=== PATIENT | female | born 1990 | race Caucasian/White ===

== ENCOUNTER 2022-10-27 10:50 | Outpatient (CLI) | payer OTHER, SELFPAY ==
--- NOTE | 2022-10-27 10:45 | CRLHL7_ITS ---
For Patients: As a result of the Century Cures Act, medical imaging exams and procedure reports are released immediately into your electronic medical record. You may view this report before your referring provider. If you have questions, please contact your health care provider. INDICATION: Left lower quadrant pain TECHNIQUE: Ultrasound pelvis transabdominal and transvaginal for better assessment or to better visualize the endometrium. Real time sonographic images with Spectral and color Doppler imaging of the ovaries were obtained. COMPARISON: None FINDINGS: Uterus: 8.8 centimeter x 3.6 centimeter x 5.5 centimeter normal echotexture of the myometrium. No masses. Endometrium: Transvaginal imaging was performed to better evaluate the endometrium. A 7 millimeter n thickness. No sign of endometrial mass or fluid. Right ovary: 2.6 centimeter x 1.4 centimeter x 1.7 centimeter no ovarian or adnexal masses. Normal arterial and venous blood flow. Left ovary: 2.6 centimeter x 1.7 centimeter x 1.8 centimeter. No ovarian or adnexal masses. Normal arterial and venous blood flow. Cul-de-sac: Small amount of free fluid. IMPRESSION: Unremarkable pelvic ultrasound. Dictated by Oscar Stovall MD @ 10/27/2022 12:00:59 PM (Electronically Signed)
== END 2022-10-27 10:51 | disposition home or self-care (01) ==
LOC: US 10:54
PROVIDERS: Visit Provider Advanced Practice Midwife
DX: R10.32 Left lower quadrant pain (principal)
CPT/HCPCS: 76830; 76856; 93976

== ENCOUNTER 2023-01-22 08:11 | Outpatient (CLI) | payer OTHER, SELFPAY ==
--- NOTE | 2023-01-22 08:15 | CRLHL7_ITS ---
For Patients: As a result of the Century Cures Act, medical imaging exams and procedure reports are released immediately into your electronic medical record. You may view this report before your referring provider. If you have questions, please contact your health care provider. INDICATION: First trimester scan, establish dates. COMPARISON: None. TECHNIQUE: Real-time melo-scale imaging of the pelvis was performed. FINDINGS: Intrauterine gestational sac is present. pole is noted with a crown-rump length of 2.6 millimeters, 5 weeks 6 days. heart rate 82 beats per minute. Right ovary demonstrates a small corpus luteal cyst. Normal left ovary. Trace pelvic free fluid. No ectopic . Yolk sac normal measuring 2.5 millimeters. IMPRESSION: Very early single living intrauterine with sonographic gestational age 5 weeks 6 days and sonographic due date 09/18/2023. heart rate 82 beats per minute. Follow-up in 2 weeks suggested. Dictated by Oscar Santoyo MD @ 01/22/2023 10:42:57 AM (Electronically Signed)
== END 2023-01-22 08:12 | disposition home or self-care (01) ==
LOC: US 08:12
PROVIDERS: Visit Provider Registered Nurse
DX: Z34.91 Encounter for supervision of normal pregnancy, unspecified, first trimester (principal); Z3A.01 Less than 8 weeks gestation of pregnancy
CPT/HCPCS: 76817

== ENCOUNTER 2023-02-04 08:46 | Outpatient (CLI) | payer OTHER, SELFPAY ==
--- NOTE | 2023-02-04 08:45 | CRLHL7_ITS ---
For Patients: As a result of the Century Cures Act, medical imaging exams and procedure reports are released immediately into your electronic medical record. You may view this report before your referring provider. If you have questions, please contact your health care provider. INDICATION: FOLLOW UP DATING AND VIABILITY COMPARISON: 01/22/2023 TECHNIQUE: Real-time melo-scale imaging of the pelvis was performed. FINDINGS: Intrauterine gestational sac is present with a mean sac diameter of 1.5 cm. Yolk sac visualized. pole measures 4.2 millimeters, 6 weeks 1 day. No heart tones. Heart tones were present on the prior study. Corpus luteal cyst right ovary. No pelvic free fluid. IMPRESSION: Intrauterine demise. Dictated by Oscar Santoyo MD @ 02/04/2023 10:06:00 AM (Electronically Signed)
== END 2023-02-04 08:47 | disposition home or self-care (01) ==
PROVIDERS: Visit Provider Registered Nurse
DX: Z34.91 Encounter for supervision of normal pregnancy, unspecified, first trimester (principal); O35.BXX0 Maternal care for other (suspected) fetal abnormality and damage, fetal cardiac anomalies, not applicable or unspecified; Z3A.01 Less than 8 weeks gestation of pregnancy
CPT/HCPCS: 76817

== ENCOUNTER 2023-02-08 08:49 | Outpatient (CLI) | payer OTHER, SELFPAY | END 2023-02-08 08:50 | disposition home or self-care (01) | PROVIDERS: Visit Provider Advanced Practice Midwife | DX: O03.9 Complete or unspecified spontaneous abortion without complication (principal) | CPT/HCPCS: 86850; 86900; 86901 ==

== ENCOUNTER 2023-05-14 09:10 | Outpatient (CLI) | payer OTHER, SELFPAY ==
--- NOTE | 2023-05-14 09:15 | CRLHL7_ITS ---
For Patients: As a result of the Century Cures Act, medical imaging exams and procedure reports are released immediately into your electronic medical record. You may view this report before your referring provider. If you have questions, please contact your health care provider. INDICATION: First trimester scan, establish dates. COMPARISON: None. TECHNIQUE: Real-time melo-scale imaging of the pelvis was performed. FINDINGS: Sonographic imaging demonstrates a single living intrauterine gestation. The embryo demonstrates a regular cardiac rate measuring 176 beats per minute. The embryo`s crown-rump length measurement of 2.0 cm corresponds to a gestational age of 8 weeks 4 days with a sonographic due date of 12/20/2023. There is a normal-appearing yolk sac. There are no gross abnormalities noted within the embryo at this early state of development. The gestational sac has a normal appearance. There is a 2.6 x 1.0 x 0.9 cm perigestational hemorrhage. The amount of fluid within the sac appears appropriate for gestational age. The cervix is closed. The myometrium appears normal. The ovaries are of normal size. Corpus luteal cyst left ovary. There are no suspicious fluid collections noted in the cul-de-sac. IMPRESSION: Single living intrauterine with sonographic gestational age 8 weeks 4 days and sonographic due date 12/20/2023. Subchorionic hemorrhage measuring 2.6 x 1.0 x 0.9 cm. Dictated by Oscar Santoyo MD @ 05/14/2023 4:58:29 PM (Electronically Signed)
== END 2023-05-14 09:11 | disposition home or self-care (01) ==
LOC: US 09:11
PROVIDERS: Visit Provider Advanced Practice Midwife
DX: Z34.91 Encounter for supervision of normal pregnancy, unspecified, first trimester (principal); O20.9 Hemorrhage in early pregnancy, unspecified; Z3A.08 8 weeks gestation of pregnancy
CPT/HCPCS: 76817; 86592; 86703; 86762; 86787; 86803; 87086; 87340

== ENCOUNTER 2023-05-15 10:49 | Outpatient (CLI) | payer OTHER, SELFPAY | END 2023-05-15 10:50 | disposition home or self-care (01) | LOC: LKVREF 10:49 | PROVIDERS: Visit Provider Nurse Practitioner Family | DX: N39.0 Urinary tract infection, site not specified (principal) | CPT/HCPCS: 87086 ==

== ENCOUNTER 2023-05-20 16:19 | Outpatient (CLI) | payer OTHER, SELFPAY ==
--- NOTE | 2023-05-20 16:30 | CRLHL7_ITS ---
For Patients: As a result of the Century Cures Act, medical imaging exams and procedure reports are released immediately into your electronic medical record. You may view this report before your referring provider. If you have questions, please contact your health care provider. INDICATION: Dysuria, blood in urine. TECHNIQUE: Ultrasound renal and bladder complete. Guan-scale and color Doppler sonographic images were acquired of the kidneys and urinary bladder. COMPARISON: None. FINDINGS: Right kidney: 11.5 x 4.4 x 5.3 cm. Left kidney: 12.2 x 4.8 x 6.8 cm. Normal echotexture and cortex. No suspicious masses, stones, or hydronephrosis. Bladder: Normal in caliber and appearance. Color Doppler images demonstrate bilateral ureteral jets. No significant postvoid residual. IMPRESSION: Unremarkable renal ultrasound. Dictated by Nikolay Duque MD @ 05/21/2023 1:40:04 AM (Electronically Signed)
== END 2023-05-20 16:20 | disposition home or self-care (01) ==
LOC: US 16:20
PROVIDERS: Visit Provider Advanced Practice Midwife
DX: R30.0 Dysuria (principal); R31.9 Hematuria, unspecified
CPT/HCPCS: 76775

== ENCOUNTER 2023-06-17 10:06 | Outpatient (CLI) | payer OTHER, SELFPAY ==
--- NOTE | 2023-06-17 10:15 | CRLHL7_ITS ---
For Patients: As a result of the Century Cures Act, medical imaging exams and procedure reports are released immediately into your electronic medical record. You may view this report before your referring provider. If you have questions, please contact your health care provider. INDICATION: bleeding in 1st trimester COMPARISON: 05/14/2023 TECHNIQUE: Real-time melo-scale imaging of the pelvis was performed. FINDINGS: Single living intrauterine is present. Cervix is closed. No subchorionic hemorrhage. Navarro-rump length 7.4 cm, 13 weeks 3 days, due date 12/20/2023. heart rate 141 beats per minute. IMPRESSION: Normal early IUP. Dictated by Oscar Santoyo MD @ 06/17/2023 12:25:00 PM (Electronically Signed)
== END 2023-06-17 10:07 | disposition home or self-care (01) ==
LOC: US 10:07
PROVIDERS: Visit Provider Advanced Practice Midwife
DX: O20.9 Hemorrhage in early pregnancy, unspecified (principal)
CPT/HCPCS: 76801; 86850; J2791

== ENCOUNTER 2023-07-19 11:28 | Outpatient (CLI) | payer OTHER, SELFPAY | END 2023-07-19 11:29 | disposition home or self-care (01) | LOC: NFLDREF 07-20 09:40 | PROVIDERS: Visit Provider Nurse Practitioner Family | DX: N39.0 Urinary tract infection, site not specified (principal) | CPT/HCPCS: 87086 ==

== ENCOUNTER 2023-08-03 08:16 | Outpatient (CLI) | payer OTHER, SELFPAY ==
--- NOTE | 2023-08-03 08:15 | CRLHL7_ITS ---
For Patients: As a result of the Century Cures Act, medical imaging exams and procedure reports are released immediately into your electronic medical record. You may view this report before your referring provider. If you have questions, please contact your health care provider. HISTORY: anatomic survey. COMPARISON: Early OB ultrasound from 06/17/2023. TECHNIQUE: Ultrasound examination of the is performed with transabdominal technique. FINDINGS: A single intrauterine gestation is seen in breech presentation with regular cardiac activity at 146 beats per minute. The placenta is posterior and is free of the cervical os. The placental grade is 0 and the amniotic fluid volume is normal. Single deepest vertical pocket: Normal at 3.5 cm. The cervix is not dilated and is normal in length at 3.3 centimeters. BPD: 4.3 cm 18 weeks 6 days HC: 16.5 cm 19 weeks 2 days AC: 15.4 cm 20 weeks 4 days FL: 3.0 cm 19 weeks 2 days The estimated age by ultrasound is 19 weeks 6 days, with an estimated date of delivery of 12/22/2023. This correlates well with the clinical age of 20 weeks 1 day in the previous ultrasound. The ultrasound ratios are normal. Estimated weight is 320 grams which is the 38th percentile based on the clinical dates. The anatomic survey demonstrates normal appearing intracranial structures with a normal septum pellucidum and normal cerebellum. The nuchal thickness is normal at 5 mm and the lateral ventricle is normal in diameter at 5 mm. The upper lip, 4 chamber heart, left and right ventricular outflow tracts, diaphragm, stomach, cord insertion site, 3-vessel cord, kidneys, bladder and spine are normal in appearance. IMPRESSION: Single intrauterine gestation in breech presentation with regular cardiac activity. Estimated gestational age is 19 weeks 6 days. There has been appropriate interval growth. Estimated weight is 320 grams which is the 38th percentile based on the clinical dates. Dictated by Ishan Sandoval MD @ 08/03/2023 10:09:20 AM (Electronically Signed)
== END 2023-08-03 08:17 | disposition home or self-care (01) ==
LOC: US 08:17
PROVIDERS: Visit Provider Advanced Practice Midwife
DX: Z34.92 Encounter for supervision of normal pregnancy, unspecified, second trimester (principal); Z3A.19 19 weeks gestation of pregnancy
CPT/HCPCS: 76805; 87086

== ENCOUNTER 2023-09-24 08:59 | Outpatient (CLI) | payer OTHER, SELFPAY | END 2023-09-24 09:00 | disposition home or self-care (01) | LOC: NFLDREF 09:00 | PROVIDERS: Visit Provider Advanced Practice Midwife | DX: O26.892 Other specified pregnancy related conditions, second trimester (principal); Z67.91 Unspecified blood type, Rh negative; Z3A.27 27 weeks gestation of pregnancy | CPT/HCPCS: 86592; 86850; 86870; 86880; 86900; 86901; J2791 ==

== ENCOUNTER 2023-11-16 17:21 | Inpatient (IN) | payer OTHER, SELFPAY ==
[2023-11-16] VITALS (27 sets, daily range): BP systolic 92–137; BP diastolic 5–80; PULSE 77–127; RESP 16–18; TEMP 36.3–37.1; O2SAT 94–99; BMI 30.3
--- NOTE | 2023-11-16 14:11 | CRLHL7_ITS ---
For Patients: As a result of the Cures Act, medical imaging exams and procedure reports are released immediately into your electronic medical record. You may view this report before your referring provider. If you have questions, please contact your health care provider. INDICATION: Vaginal bleeding. TECHNIQUE: Ultrasound OB pelvis transabdominal. Real-time melo-scale imaging of the fetus and uterus was performed. COMPARISON: 08/03/2023 FINDINGS: Provided gestational age: 35 weeks 1 day The maternal cervix is not well seen on provided images. Intrauterine gestation: Present. cardiac activity: 144 BPM. Presentation: Cephalic. Amniotic fluid volume: Normal. Deepest vertical pocket of 7.2 cm. Placenta: Posterior. IMPRESSION.: Viable intrauterine . No abnormalities seen. Dictated by Sylwia Gunter MD @ 11/16/2023 3:28:34 PM (Electronically Signed)
[2023-11-16 15:03] LABS: Amnisure Rom* POSITIVE
[2023-11-16 15:09] LABS: Basophils Absolute Auto 0.02 K/uL (0.00-0.30); Basophils Percent Auto 0.2 % (0.0-3.0); Eosinophils Absolute Auto 0.13 K/uL (0.00-0.50); Eosinophils Percent Auto 1.5 % (0.0-7.0); Hematocrit 32.1 % (33.0-51.0); Hemoglobin* 10.7 gm/dL (12.0-16.0); Immature Granulocytes Abs Auto 0.05 K/uL (0.00-0.30); Immature Granulocytes Pct Auto 0.6 %; Lymphocytes Percent Auto 18.6 % (20-44); Mean Corpuscular HGB Conc 33 gm/dL (32-36); Mean Corpuscular Hemoglobin 29 pg (26-34); Mean Corpuscular Volume 87 fL (80-100); Monocytes Percent Auto 6.4 % (0.0-11.0); Neutrophils Percent Auto 72.7 % (42.0-72.0); Platelet Count* 208 K/uL (140-440); RDW Coefficient of Variation % 12.9 % (11.5-15.5); White Blood Count* 8.61 K/uL (4.50-11.00)
--- NOTE | 2023-11-16 15:10 | P.OBLDTN_ITS ---
OB - Triage/Final Diagnosis Visit Information Date Seen: 11/16/23 Narrative: The patient is a 33 year old 3 para 1 at 35.1 weeks gestation by LMP, who presents with vaginal bleeding. She states that she was sitting on a birthing ball when she felt a small pop and some fluid. She thought that she had peed but when she went to the bathroom she noticed that her underwear and pants were soaked though with bright red blood. She she presented to triage she had bright red blood that had soaked about 1/3 of her pad and some present on her thighs. She is appreciating good movement and has felt some cramping since the bleeding. On cervical exam she was found to be 1cm and thick. The bleeding on the pad in the bed was bright red but did seem to be thin. An AmniSure was collected but as there was a significant amount of blood it will likely not be accurate. A fern was collected and looked at under the microscope but no ferning was observed after an extensive look. A GBS swab was collected as well as a CBC. Per the technicians verbal report there was no sign of abruption, good amniotic fluid amount, a long cervix, and good heart rate. Dr. Tim was consulted will plan to see the patient. Added a type and screen, RhoGAM, and Betamethasone. Will plan for observation overnight. Evaluation Cervical dilation (cm): 1 Laboratory results: Laboratory Tests 11/16/23 11/16/23 11/16/23 Range/Units 14:50 14:27 14:14 WBC Pending RBC Pending Hgb Pending Hct Pending MCV Pending MCH Pending MCHC Pending Plt Count Pending Neut % (Auto) Pending Lymph % (Auto) Pending [place] % (Auto) Pending Eos % (Auto) Pending Baso % (Auto) Pending Neut # (Auto) Pending Lymph # (Auto) Pending [place] # (Auto) Pending Eos # (Auto) Pending Baso # (Auto) Pending Membrane Rupture POSITIVE Group B Strep DNA Pending Vital signs: Vital Signs - 24 hr 11/16/23 14:06 11/16/23 14:06 11/16/23 14:07 Temperature 98.8 F Pulse Rate 117 H Respiratory Rate 16 Blood Pressure 137/80 Pulse Oximetry 96 11/16/23 14:12 11/16/23 14:17 11/16/23 14:22 Temperature Pulse Rate Respiratory Rate Blood Pressure Pulse Oximetry 95 94 97 11/16/23 14:27 Temperature Pulse Rate Respiratory Rate Blood Pressure Pulse Oximetry 95 Fetus (Single) Heart Rate Baseline: 135 Environmental Issues Instructor Variability: Moderate (6-25) Monitor Accelerations: Present Monitor Decelerations: None Final Diagnosis (1) Vaginal bleeding in : Status: Inactive Problem details: Place IV. Continuous monitoring. Type and screen, CBC, and GBS. Give RhoGAM.
[2023-11-16] MEDS: LACTATED RINGERS 1000 ML 1,000 ML 125 ML IV ×2 (15:37→19:34)
[2023-11-16] MEDS: BETAMETHASONE SOD PHOS/ACETATE 6 MG/ML ML 12 MG IM (15:59)
--- NOTE | 2023-11-16 16:50 | P.OBCN_ITS ---
OB - CN: HPI Date of Consult Date Seen: 11/16/23 Consult date: 11/16/23 Requesting Physician: Tia Fuentes CNM Primary Care Provider: Not a Local Provider Consult Narrative Narrative: The patient is a 33 year old G 3 P 1-0-1-1 woman at 35 weeks, 0 days gestation by LMP consistent with 13 week ultrasound, EFRAIN 12/20/2023, who was admitted to [facility] for vaginal bleeding. She was having some low back pain, and was sitting on a birthing ball at home, when she felt a polyp, followed by a gush of bleeding. The bleeding initially saturated her underwear and ran down her leg. She had more bleeding into the toilet. Upon arrival, she was still having some vaginal bleeding, but lessened, only to increased briefly during our exam. She is not having any regular contractions. However, she is beginning to endorse some uterine tenderness. Her has been essentially uncomplicated. She has had a full-term vaginal in 2021 without complications. Ob problem list: : Joe OFFER TDAP AT 34 WEEKS 1. History of frequent UTIs. 2. Hx migraines Rx for Reglan 3. Interstitial Cystitis Flare 05/20, Kidney US negative Trying zyrtec/antihistamine daily Consider Vistaril 25-50 mg HS if symptoms are not improving. Seen urology around 28 weeks: Rx for Macrobid 25 mg to use after intercourse 4. Rhogam given at 13.3 weeks for bleeding. Needs pap PP (last in out records 06/22/19. Clarify as she said she had one with her last ) COVID: declines Flu: declines, would prefer to also skip in fall. TDAP: 32wk Mental Health: History History 3 Elective abortions Para 1 Spontaneous abortions 1 Hx # Term Pregnancies 1 Ectopic pregnancies Hx # Pregnancies Multiple births Number of Living Children 1 Past Pregnancies Del. Date GA/Weeks Outcome Route wt Inf Gender Labor Lgth Anesthesia Location Provider Compli 03/20/22 39 live - full term 7 lb 5 oz Female 9 hour s intravenous analgesics MCKENNA Puri CNM 02/04/23 6 spontaneous Review of Systems Narrative: No cough or cold symptoms No contractions No constipation or diarrhea Positive for vaginal bleeding Positive for movement PFSH PFSH Medical History (Updated 11/16/23 @ 17:00 by Norma Tim MD) Frequent UTI ?N39.0 - Urinary tract infection, site not specified (ICD-10) Temporomandibular joint disorder (08/15/12) ?M26.609 - Unspecified temporomandibular joint disorder, unspecified side (ICD-10) Premenstrual dysphoric disorder (07/21/08) ?F32.81 - Premenstrual dysphoric disorder (ICD-10) Gastroesophageal reflux disease (12/22/06) ?K21.9 - Gastro-esophageal reflux disease without esophagitis (ICD-10) Surgical History History of vaginal delivery History of nasal septoplasty (2016) ?Z98.890 - Other specified postprocedural states (ICD-10) H/O tympanostomy (2016) ?Z98.890 - Other specified postprocedural states (ICD-10) H/O knee surgery (02/2002) ?Z98.890 - Other specified postprocedural states (ICD-10) Family History Grandmother Colon cancer Lung cancer Mother High cholesterol Father High cholesterol Grandfather Lung cancer Social History Narrative: SOCIAL Education: bachelors 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 College education. Does not exercise regularly. Denies smoking. Smoking Status: Never smoker Little interest or pleasure in doing things: not at all Feeling down, depressed, or hopeless: not at all Meds Home Medications and Allergies Home Medications Medication Instructions Recorded Confirmed Type Lactobacillus plantarum 10 billion cell PO QDAY 01/22/23 10/20/23 History cell capsule docosahexaenoic acid 200 mg mg PO QDAY 01/22/23 10/20/23 History capsule ( DHA) Allergies Allergy/AdvReac Type Severity Reaction Status Date / Time diphenhydramine Allergy Mild Hives Verified 10/20/23 08:05 [From Benadryl Allergy] OB - H&P: Exam Physical Exam: Vital signs: Temp Pulse Resp BP Pulse Ox 98.7 F 99 16 128/71 95 11/16/23 16:30 11/16/23 16:30 11/16/23 16:30 11/16/23 16:30 11/16/23 14:27 Narrative: Physical exam: General: No acute distress Psych: Alert and oriented x3, full affect HEENT: Normocephalic, atraumatic Neck: No cervical adenopathy, no thyromegaly Heart: Regular rate and rhythm, no murmur rub or gallop Lungs: Clear to auscultation bilaterally Abdomen: Gravid, soft, mild tenderness Skin: No lesions or rashes Lower extremities: No edema or erythema Pelvic exam: Mons normal, clitoris normal, urethral meatus normal. Labia minora and majora normal in appearance bilaterally, other than dried blood noted. Vaginal introitus normal appearance. Vagina with pool of blood in the posterior fornix. Cervix pink, long, visually closed, and without lesion. AmniSure is positive, but in the presence of abundant blood Sterile speculum exam is positive for pooling, negative for ferning. Nitrazine not performed. tracing exhibits baseline of 135, accelerations present, no decelerations, moderate variability. Reactive and reassuring. No contractions are noted on toco. Ob ultrasound shows cephalic lie, normal fluid, no obvious placental clot OB - Results Labs Labs: Short CBC 11/16/23 Range/Units 14:50 WBC 8.61 (4.50-11.00) K/uL Hgb 10.7 L (12.0-16.0) gm/dL Hct 32.1 L (33.0-51.0) % Plt Count 208 (140-440) K/uL Fibrinogen pending OB - CN: A/P Assessment and Plan (1) Vaginal bleeding in : Problem details: Place IV. Continuous monitoring. Type and screen, CBC, and GBS. Give RhoGAM. Status: Inactive (2) Placental abruption affecting delivery: Status: Acute Assessment and Plan: Given continuing bleeding, I recommended delivery. Her cervix is completely closed and long, and I am concerned about along induction in the presence of active bleeding. I acknowledged that vital signs for her and tracing for baby are both reassuring at this time. We discussed the possibility of rapid deterioration. Given this, I favor delivery. We discussed the risks of , including bleeding, hemorrhage, uterine scarring, infection, the likely recovery, and impact on future pregnancies. Consent form was reviewed with and signed by patient. We also discussed the high likelihood that infant would need transfer for respiratory support. Pediatrics will be in attendance at delivery.
[2023-11-16] MEDS: CEFAZOLIN 2 GM INJ IVP (17:45)
[2023-11-16 17:52] LABS: INR 0.91 (0.91-1.10); Prothrombin Time 12.8 Seconds
[2023-11-16 17:53] LABS: Partial Thromboplastin Time* 25 Seconds (23-33)
[2023-11-16 17:54] LABS: Fibrinogen* 577 mg/dL (200-450)
[2023-11-16] MEDS: LACTATED RINGERS 1000 ML 1,000 ML 100 ML IV (18:11)
--- NOTE | 2023-11-16 19:23 | P.NB_ITS ---
Nerve Block Nerve Block Time Seen by Provider: 19:00 Date Seen: 11/16/23 Type of block requested by surgeon for post-operative analgesia: TAP Side: bilateral Time out performed: Yes Verification of patient name: Yes Verification of date of : Yes Site marking: site marked Name of person performing procedure: collin manty Continuous monitoring Was continuous monitoring of O2 sat, B/P, traffic monitor specialist, recorded every 15 minutes?: Yes Procedure Checklist: sterile prep, needles and gloves Ultrasound guided. Images saved: Yes Medications given in 5ml increments after negative aspiration: Marcaine %: 0.25 mL: 30 and Exparel mL: 10 Patient tolerated procedure well: Yes Block Charges Block Charge (with Pro Fee): TAP Bilateral Use of Ultrasound Machine for Block: Yes- US Guidance/pain block
--- NOTE | 2023-11-16 19:27 | W.ANESCHARGE ---
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
--- NOTE | 2023-11-16 19:48 | P.OBPRC_ITS ---
Procedure Date of procedure: 11/16/23 Will [facility] bill your pro fee for this procedure?: Yes Procedure Description: Date of procedure: 11/16/23 Pre-op diagnosis: 1. 35 0/7 weeks' gestation 2. Vaginal bleeding; suspected placental abruption Post-op diagnosis: same Blood Loss Measurement Type: QBL (1028 cc) Bakri Used: No IV fluids (mL): 1,900 Surgeon: Norma Tim MD Anesthesia Type: TAP Block Findings: 1. Male infant, cephalic OA presentation, Apgars of 7 and 8, weight pending at time of this dictation 2. Normal appearance of uterus, bilateral tubes and ovaries Procedure Name: Primary low-transverse section Procedure Description: PROCEDURE IN DETAIL: Patient was taken to the operating room with IV running. She received cefazolin in preoperative prophylaxis. Spinal anesthesia was administered. Starkey catheter was inserted. She was prepped and draped in the usual sterile fashion. Anesthesia was tested and found to be adequate. A low-transverse skin incision was made with a scalpel and carried through to the underlying layer of fascia with the scalpel. The subcutaneous fat was dissected off the underlying fascia with Bovie. The fascia was nicked in the midline with a scalpel, and this incision was extended laterally with scissors. The rectus muscles were in the midline. Peritoneum was identified and entered bluntly. Bovie was used to widen this opening laterally. Cas O retractor was inserted and tightened down, providing excellent visualization of the lower uterine segment. The bladder reflection was found to be well below the planned site for hysterotomy. Low-transverse uterine incision was made with a scalpel. Incision was widened bluntly. The 's head was grasped through the hysterotomy and delivered with the help of fundal pressure. The remainder of the body delivered without incident. Cord was clamped and cut after 30 seconds. was handed off to attending nurses. The placenta was delivered with gentle traction on the cord. The uterus was cleaned of all clots and debris with the dry lap pad. The uterus was exteriorized. The hysterotomy was reapproximated with 0 Vicryl in a running, locked fashion. Second layer of the same suture was used in imbricating fashion to obtain hemostasis. One additional [id number] suture were required near the left aspect of the hysterotomy to obtain hemostasis. The adnexa were examined and noted to be normal in appearance. The cul-de-sac and gutters were cleansed with dampened laparotomy sponge, removing any further clots and debris. The uterus was returned to the abdomen. There was some oozing along the parietal peritoneum adjacent to the bladder, which was addressed with Bovie. The Cas O retractor was removed. The hysterotomy was reexamined and found to be hemostatic. The peritoneum was reapproximated with 2 0 Vicryl in a running fashion. The rectus muscles were examined and found to be hemostatic. The fascia was reapproximated with 0 Vicryl in a running fashion. Subcutaneous fat was irrigated and Bovie used on oozing vessels. The subcutaneous fat was reapproximated with 2 0 plain gut suture in an interrupted fashion. The skin was closed with a subcuticular stitch of 4-0 Monocryl. Surgical glue was applied above this. Patient tolerated procedure well was taken to recovery area in stable condition. Complications: Intrapartum hemorrhage of 1028 mL, which ceased after hysterotomy closure. Pathology: specimen obtained, sent to pathology (Placental) Surgery Debrief Performed: Yes Condition: stable Disposition: floor
[2023-11-16] MEDS: ONDANSETRON 2 MG/ML inj 4 MG IVP (21:52)
[2023-11-17] VITALS (21 sets, daily range): BP systolic 102–123; BP diastolic 59–71; PULSE 75–93; RESP 14–18; TEMP 36.4–36.8; O2SAT 95–98
[2023-11-17] MEDS: MELATONIN 3 MG TABLET PO (00:24)
[2023-11-17] MEDS: KETOROLAC 30 MG/ML inj IVP ×4 (00:24→18:33)
[2023-11-17 02:32] LABS: Slide Review Reflex No
[2023-11-17 07:06] LABS: Hemoglobin* 9.3 gm/dL (12.0-16.0)
--- NOTE | 2023-11-17 08:35 | P.OBPN_ITS ---
OB - PN:Subj Subjective Date Seen: 11/17/23 Narrative: Emily is a 33 y.o. G 3 P 1112 who was admitted to L & D for heavy vaginal bleeding saturating a large pad and her pants. Due to concern for abruption she had a section that was complicated by intrapartum hemorrhage. The pat iraisnt feels well this morning. ?The pain is well controlled with current medications. ?She has no new complaints. ?She is pumping as baby was transfered to the NICU last evening. She reports it is going well. the patient has done well.? Vitals have been stable.? She has remained afebrile.? Has a good appetite, is tolerating a general diet. ?She is voiding without difficulty.? She is passing gas and has not had a bowel movement.? She is ambulating and denies any dizziness.? Has small amount of rubra lochia. She did desire discharge today possibly to be with baby in NICU, strongly encouraged her to stay to assess pain again overnight as the anesthesia long acting medication wears off around 24 hours post section. If she still desires to go later this evening, she will let me know. Otherwise plan for discharge in the morning. Problems: Anemia OB - PN: Obj Exam Physical Exam: Vital signs: Temp Pulse Resp BP Pulse Ox O2 Del Method 97.6 F 83 16 108/71 98 Room Air 11/17/23 07:42 11/17/23 07:42 11/17/23 07:42 11/17/23 07:42 11/17/23 03:44 11/17/23 03:44 Narrative: GENERAL APPEARANCE:? normal affect, alert, no distress MOOD:? appropriate CHEST:? clear to auscultation HEART:? regular rate and rhythm ABDOMEN:? soft, non-tender the uterine fundus is At Umbilicus, Midline and is appropriate for the stage of recovery. EXTREMITIES:? normal and no edema INCISION: Dressing in place; clean, dry, and intact Urinary Catheter Management: Urethral: Cath placed during this visit: yes, but has since been removed by the nurse Reason for continuing: decision to DC catheter Insertion date: 11/16/23 Insertion time: 17:58 Removal date: 11/17/23 Removal time: 04:07 OB - PN: Obj Data Labs Labs: Laboratory Results - last 24 hr 0111/16/23 11/16/23 14:14 14:50 15:12 WBC 8.61 RBC 3.70 L Hgb 10.7 L Hct 32.1 L MCV 87 MCH 29 MCHC 33 RDW Coeff of Elvira 12.9 Plt Count 208 Neut % (Auto) 72.7 H Lymph % (Auto) 18.6 L Schleicher % (Auto) 6.4 Eos % (Auto) 1.5 Baso % (Auto) 0.2 Neut # (Auto) 6.30 Lymph # (Auto) 1.60 Schleicher # (Auto) 0.60 Eos # (Auto) 0.13 Baso # (Auto) 0.02 Abs Immat Gran (auto) 0.05 Imm/Tot Granulo (auto) 0.6 INR APTT Fibrinogen Membrane Rupture POSITIVE Lab Acknowledgement Test Added Blood Type O Negative Antibody Screen POSITIVE Screen Negative Crossmatch (AHG) See Detail 11/16/23 11/16/23 11/17/23 15:33 17:16 06:58 WBC RBC Hgb 9.3 L Hct MCV MCH MCHC RDW Coeff of Elvira Plt Count Neut % (Auto) Lymph % (Auto) Schleicher % (Auto) Eos % (Auto) Baso % (Auto) Neut # (Auto) Lymph # (Auto) Schleicher # (Auto) Eos # (Auto) Baso # (Auto) Abs Immat Gran (auto) Imm/Tot Granulo (auto) INR 0.91 APTT 25 Fibrinogen 577 H Membrane Rupture Lab Acknowledgement Test Added Blood Type Antibody Screen Screen Crossmatch (AHG) OB - PN: A/P Delivery Assessment and Plan (1) care and examination immediately after delivery: Status: Acute (2) Lactating mother: Status: Acute (3) Intrapartum hemorrhage, delivered: Status: Acute (4) delivery, delivered, current hospitalization: Status: Acute Plan day: 1 Plan: routine care Comments: Routine and post-op care. , may see if needed Hgb 9.3. Iron supplement ordered orally every other day Anticipate discharge tomorrow morning.
[2023-11-17] MEDS: DOCUSATE SODIUM 100 MG CAPSULE PO (10:14)
[2023-11-17] MEDS: FERROUS SULFATE 325 MG TABLET PO (12:14)
[2023-11-17] MEDS: ACETAMINOPHEN 500 MG TABLET 1000 MG PO ×2 (12:14→18:33)
[2023-11-17] MEDS: OXYCODONE 5 MG TABLET PO ×3 (14:11→20:41)
[2023-11-17 15:01] LABS: Strep B DNA Probe Positive (Negative); Strep B Susceptibility Needed? No
[2023-11-17] MEDS: MAGNESIUM HYDROXIDE 30 ML ORAL.SUSP PO (16:05)
[2023-11-18 00:24] VITALS: BP 103/62; PULSE 74; RESP 18; TEMP 36.3; O2SAT 97
[2023-11-18] MEDS: KETOROLAC 30 MG/ML inj IVP (00:36)
[2023-11-18] MEDS: SIMETHICONE 80 MG TAB.CHEW PO (00:36)
[2023-11-18] MEDS: ACETAMINOPHEN 500 MG TABLET 1000 MG PO (04:26)
[2023-11-18] MEDS: IBUPROFEN 600 MG TABLET PO (07:35)
[2023-11-18 07:36] VITALS: BP 112/77; PULSE 66; RESP 17; TEMP 36.4; O2SAT 99
--- NOTE | 2023-11-18 08:07 | PM.OBDSVD1 ---
DS: Providers Provider Date Seen: 11/18/23 Date of admission: 11/16/23 17:21 Primary care physician: Not a Local Provider Admitting Clinician: Norma Tim MD Consults: 11/16/23 15:10 Consult to Physician [CONS] Routine Comment: Consulting Provider: Norma Tim Has provider been notified: Yes Attending Physician on discharge: Asaf Meléndez CNM Date of Discharge: 11/18/23 DS: Diagnosis Discharge Diagnosis (1) care and examination immediately after delivery: Status: Acute (2) Lactating mother: Status: Acute (3) delivery, delivered, current hospitalization: Status: Acute (4) Intrapartum hemorrhage, delivered: Status: Acute Exam Narrative: Exam Narrative: VSS. ?Afebrile GENERAL APPEARANCE: ?normal affect, alert, no distress MOOD: ?appropriate HEENT: normocephalic, neck supple, full ROM CHEST: ?Symmetrical chest wall movement. ?Normal respiratory effort. ?Clear to auscultation HEART: ?regular rate and rhythm ABDOMEN: ?soft, non-tender. Uterine fundus is firm, 2 below the Umbilicus, Midline and is appropriate for the stage of recovery. ?Bowel sounds present. EXTREMITIES: ?normal and no edema SKIN: warm, dry. ?Incision clean/dry/well approximated. ?No signs of infection noted. Const: Vital Signs, click to edit/add: Vital Signs - 24 hr 11/17/23 08:28 11/17/23 09:28 11/17/23 11:09 Temperature Pulse Rate [Pulse Oximeter] Respiratory Rate 16 16 16 Blood Pressure [Ri ght Arm] Pulse Oximetry Oxygen Delivery Ca thod 11/17/23 11:28 11/17/23 12:20 11/17/23 12:28 Temperature 98.1 F Pulse Rate [Pulse Oximeter] 77 Respiratory Rate 16 16 16 Blood Pressure [Ri ght Arm] 106/62 Pulse Oximetry Oxygen Delivery Ca thod 11/17/23 13:28 11/17/23 14:28 11/17/23 15:28 Temperature Pulse Rate [Pulse Oximeter] Respiratory Rate 16 16 16 Blood Pressure [Ri ght Arm] Pulse Oximetry [facility] 11/17/23 16:54 11/17/23 18:56 11/18/23 00:24 Temperature 97.5 F L 97.4 F L Pulse Rate [Pulse Oximeter] 75 74 Respiratory Rate 16 16 18 Blood Pressure [Ri t Arm] 102/65 103/62 Pulse Oximetry 97 Oxygen Delivery Me thod Room Air 11/18/23 07:36 Temperature 97.6 F Pulse Rate [Pulse Oximeter] 66 Respiratory Rate 17 Blood Pressure [Ri ght Arm] 112/77 Pulse Oximetry 99 Oxygen Delivery Me thod Room Air Documenting provider has reviewed patient's vital signs: yes OB - DS: Summary Hospital Course Hospital Course: Alis is a 33 y.o. who was admitted to L & D for heavy vaginal bleeding. ?She had a .?The patient feels well. ?The pain is well controlled with current medications. ?She has no new complaints. ?She is pumping for her infant who is in the NICU and reports things are going well.? the patient has done well.? Vitals have been stable.? She has remained afebrile.? Has a good appetite, is tolerating a general diet. ?She is voiding without difficulty.? She is passing gas and has not yet had a bowel movement.? She is ambulating and denies any dizziness.? Has Small amount of rubra lochia. ?She is unsure about what she is planning for prevention. Peripartum Data Infant delivery method: Primary C/S; Non-Labored Laceration description: None Procedures: Procedures Operation Date: 11/16/23 18:45 Actual Procedure Side Surgeon p PRIMARY Section DELIVERY Norma Tim MD complications: none Infant Gender: Male Discharge Plan: Home Status at Discharge Functional status at discharge: independent ambulation Overall status at discharge: patient is progressing back to baseline Time Spent with Patient Time attestation: Total time spent providing and/or coordinating discharge services: Time spent: Less than 30 minutes Discharge Plan Discharge Disposition: Home, Self-Care Date of Admission: 11/16/23 17:21 Attending Provider on Discharge: Asaf Meléndez Consulting Providers: Norma Tim Primary Care Provider: Provider,Not a Local Condition: Stable Anticipated Discharge Date/Time: 11/18/23 08:00 Discharge Medications: New acetaminophen 500 mg Tablet 1,000 mg PO Q6H PRN (Reason: Pain) Qty: 0 0RF docusate sodium 100 mg Capsule 100 mg PO DAILY Qty: 90 0RF ibuprofen 600 mg tablet 600 mg PO Q6H PRNQty: 60 0RF oxycodone 5 mg Tablet 5 - 10 mg PO Q4H PRN (Reason: Pain) Qty: 20 0RF Continued Lactobacillus plantarum 10 billion cell capsule PO QDAY DHA 200 mg capsule PO QDAY Discharge Orders: Discharge Order (Routine); Ordered 11/18/23 Ordered By: Asaf Meléndez Patient Education: Depression (GEN), Breast Care for the Mother (GEN), OB Over the Counter Medication Information, OB /Breast Feeding Additional Instructions: Discharge instructions were reviewed with the patient including signs and symptoms of infection and home going medications Lifting Restrictions: 20 pounds for 6 weeks No not submerge incision under water X 2 weeks? Nothing vaginally for 6 weeks: no tampons or intercourse Do not drive while taking narcotic pain medication(s) Off Work or School for 8 weeks 2-week visit: incision check, discuss feeding concerns, review control options and screen for anxiety/depression. 6-week visit for an annual exam. consultation services are available to all mothers and babies for the first year after delivery.? To make an appointment, please call [phone]. Activity Level: No strenuous activity Discharge Diet: Regular Follow Up Appointments: Provider,Not a Local [Primary Care Provider] - Forms: [employer] Info Instructions
== END 2023-11-18 09:00 | disposition home or self-care (01) | DRG 787 ==
LOC: OB OUT 17:23 → OB 17:23
PROVIDERS: Admitting Provider Obstetrics & Gynecology; Visit Provider Advanced Practice Midwife
PROC: 10D00Z1 Extraction of Products of Conception, Low, Open Approach (ICD-10-PCS; CPT 59514; principal; 2023-11-16 18:30)
DX: O45.93 Premature separation of placenta, unspecified, third trimester (principal); O72.1 Other immediate postpartum hemorrhage; O26.893 Other specified pregnancy related conditions, third trimester; Z67.41 Type O blood, Rh negative; G89.18 Other acute postprocedural pain; Z3A.35 35 weeks gestation of pregnancy; Z37.0 Single live birth
CPT/HCPCS: 01961; 36415; 64488; 76815; 76942; 84112; 85018; 85025; 85384; 85461; 85610; 85730; 86850; 86870; 86880; 86900; 86901; 86922; 87081; 87653; 88307; 99140; A9270; C9290; J0665; J0690; J0702; J1100; J1885; J2274; J2371; J2405; J2590; J7120

== ENCOUNTER 2025-08-17 09:10 | Outpatient (CLI) | payer OTHER, SELFPAY ==
--- NOTE | 2025-08-17 09:15 | CRLHL7_ITS ---
For Patients: As a result of the Cures Act, medical imaging exams and procedure reports are released immediately into your electronic medical record. You may view this report before your referring provider. If you have questions, please contact your health care provider. OB ULTRASOUND INDICATION: Dating and viability. TECHNIQUE: Real time grayscale imaging of the fetus was performed. Transvaginal. Transvaginal imaging performed to better demonstrate the endometrium and ovaries. LMP: 06/14/2025. EFRAIN by LMP: 03/21/2026. GA: 9 w, 1 d. Previous US: No. CRL: 2.3 cm. 9 w 0 d. EFRAIN: 03/22/2026. FHR: 173 BPM. Gestational sac: 3.7 cm. Appears within normal limits. Yolk sac: 4.5 mm. Appears within normal limits. Right ovary: N/V. Left ovary: 3.3 x 1.7 x 1.9 cm. CL. IMPRESSION: 1. Single living intrauterine measures 9 weeks 0 days with sonographic due date 03/22/2026. 2. Corpus luteal cyst left ovary. 3. Subchorionic hemorrhage measures 1.9 x 0.5 x 1.6 cm. Oscar Santoyo M.D. Diagnostic Radiologist [email or web address] FLORIAN/[email or web address]/Dictated by: Oscar Santoyo MD @ 08/17/2025 10:49:00 AM (Electronically Signed)
== END 2025-08-17 09:11 | disposition home or self-care (01) ==
LOC: US 09:10
PROVIDERS: Visit Provider Registered Nurse
DX: O20.9 Hemorrhage in early pregnancy, unspecified (principal); O34.81 Maternal care for other abnormalities of pelvic organs, first trimester; N83.12 Corpus luteum cyst of left ovary; Z3A.09 9 weeks gestation of pregnancy
CPT/HCPCS: 76817; 83021; 86592; 86703; 86704; 86706; 86762; 86787; 86803; 86850; 86900; 86901; 87086; 87340; 87491; 87591; 87624; 88175

== ENCOUNTER 2025-08-17 10:14 | Outpatient (CLI) | payer OTHER, SELFPAY ==
[2025-08-17 15:52] LABS: Chlamydia DNA Amplified* NOT DETECTED (No Detected); GC DNA Amplified* NOT DETECTED (No Detected)
[2025-08-18 22:50] LABS: HPV Source Cervix
[2025-08-21 11:36] LABS: Pap Test Digital Imaging Done
== END 2025-08-17 10:15 | disposition home or self-care (01) ==
PROVIDERS: Visit Provider Registered Nurse
DX: Z34.81 Encounter for supervision of other normal pregnancy, first trimester (principal); Z3A.09 9 weeks gestation of pregnancy
CPT/HCPCS: 83020; 83021; 85660; 86592; 86703; 86704; 86706; 86762; 86787; 86803; 86850; 86900; 86901; 87086; 87340; 87491; 87591; 87624; 87625; 88141; 88142; 88175

== ENCOUNTER 2025-09-20 14:21 | Outpatient (CLI) | payer OTHER, SELFPAY | END 2025-09-20 14:22 | disposition home or self-care (01) | LOC: NFLDREF 14:23 | PROVIDERS: Visit Provider Obstetrics & Gynecology | DX: N39.0 Urinary tract infection, site not specified (principal) | CPT/HCPCS: 87086 ==

== ENCOUNTER 2025-11-02 07:09 | Outpatient (CLI) | payer OTHER, SELFPAY ==
--- NOTE | 2025-11-02 07:15 | CRLHL7_ITS ---
For Patients: As a result of the Century Cures Act, medical imaging exams and procedure reports are released immediately into your electronic medical record. You may view this report before your referring provider. If you have questions, please contact your health care provider. OB ULTRASOUND GREATER THAN 14 WEEKS CLINICAL HISTORY: Supervision of normal . TECHNIQUE: Real time melo scale imaging of the fetus was performed. Transabdominal imaging performed. FINDINGS: LMP: 06/14/2025. EFRAIN by LMP: 03/21/2026. GA: 20 weeks 1 day. Position: Vertex. Cervix: Visualized. Technique: TA. Length of closed cervix: 4.8 cm. Placenta/Cord Placenta Position: Anterior. Technique: TA. Placenta tip to internal OS: 8.6 cm. Umbilical Cord: 3 vessel cord. Placental Insertion: Central. Amniotic Fluid: 4.4 cm SDP. Observed Structures Calvarium/Spine: Cerebellum: 1.9 cm, 19 weeks 3 days Cisterna Magna: 3.3 mm Nuchal Fold: 4.5 mm Lateral Ventricle: 5.8 mm CSP Choroid Plexus Midline Falx Spine Abdomen: Stomach Abd Cord Insert Urinary Bladder Kidneys Diaphragm Face: Nose/Lips Orbital view Limbs: Upper Extremities Lower Extremities Feet Vascular: 4 Ch Heart LVOT RVOT 3VV 3VTV Biometry BPD: 4.5 cm, 19 weeks 3 days. 22% HC: 16.7 cm, 19 weeks 3 days. 13% AC: 13.9 cm, 19 weeks 2 days. 20% FL: 3.2 cm, 19 weeks 6 days. 31% FL/AC: 22.67% HC/AC Ratio: 1.20. Heart Rate: 147 bpm. Age by this US: 19 weeks 3 days. EFRAIN by this US: 03/26/2026. EFW: 298.75 grams. 0 lb 11 oz. Percentile by EFRAIN: 17% IMPRESSION: 1. Sonographic gestational age 19 weeks 3 days and sonographic due date 03/26/2026. Sonographic age is 5 days behind the clinical age. 2. Estimated weight 17th percentile. Abdominal circumference 20th percentile. 3. Incomplete visualization of the hands and profile. Remainder of the anatomic survey is normal. Short term follow-up recommended. Oscar Santoyo M.D. Diagnostic Radiologist [email or web address] Transcribed: 11:18 am DW/Dictated by: Oscar Santoyo MD @ 11/02/2025 9:48:00 AM (Electronically Signed)
== END 2025-11-02 07:10 | disposition home or self-care (01) ==
LOC: US 07:09
PROVIDERS: Visit Provider Obstetrics & Gynecology
DX: Z36.89 Encounter for other specified antenatal screening; Z3A.19 19 weeks gestation of pregnancy; Z34.83 Encounter for supervision of other normal pregnancy, third trimester
CPT/HCPCS: 76805